=== PATIENT | female | born 1985 | race Asian ===

== ENCOUNTER 2018-10-28 00:37 | Inpatient (IN) | payer OTHER ==
[2018-10-28] MEDS ORDERED: OXYTOCIN/SODIUM CHLORIDE 500 ML IV SCH ×3 (01:00→02:20)
[2018-10-28] MEDS ORDERED: LACTATED RINGERS 1,000 ML IV SCH ×2 (01:00→03:00)
[2018-10-28] MEDS ORDERED: SODIUM CHLORIDE FLUSH 0.9% 10 ML SYRINGE ONE (01:06)
--- NOTE | 2018-10-28 01:38 | HISTORY & PHYSICAL EXAMINATION ---
Admit History - Visit Reason Visit Reason: Contractions (Onset 2200 this pm.) - : 4 Parity: 2 Premature: 0 Ectopic: 0 : 1 Care: positive: ASIA-Monika (Care started at 10 weeks. regular visits. GDM treated with Diet. US at 20 weeks concordant.) Risk/History: positive: Gestational diabetes (partialy controled with diet.) Complications This : positive: Gestational diabetes. negative: Treated for GBS/UTI, Multiple gestation, <than 3 visits, Maternal drug use, induced HTN, Pre-eclampsia, Chronic HTN, Placental abruption, Placenta previa, Rh sensitization Smoking Status: Never smoker - Mother's Labs Mother's Blood Type: positive: B Mother's RH: positive: Positive GBS: positive: Group B Step Negative Rubella Status: positive: Immune Meds/Allgy - Allergies Allergies/Adverse Reactions: Allergies Allergy/AdvReac Type Severity Reaction Status Date / Time No Known Drug Allergies Allergy Verified 10/28/18 01:27 Physical - Abdominal Exam Contraction Frequency (min/apart): q4 Contraction Intensity: positive: Strong Uterine Resting Tone: positive: Soft - Monitoring Heart Rate Baseline: 145 Strip Review: positive: Category I - Presentation Presentation: positive: Vertex - Vaginal Exam Membranes: positive: Membranes intact Dilation (in cm): 7 Effacement (%): 100 Cervical Position: positive: Anterior - Speculum Exam Speculum Exam Performed: positive: No Plan for Labor - Plan For Labor I expect patient to be DC'd or transferred within 96 hours.: Yes Plan for Labor: follow contractions AROM
[2018-10-28 01:48] LABS: BASOPHILS % (AUTO) 0.2 %; EOSINOPHILS % (AUTO) 0.2 %; HGB - HEMOGLOBIN 13.8 g/dL (12.0-16.0); LYMPHOCYTES # (AUTO) 1.8 10^3/uL (1.5-3.5); LYMPHOCYTES % (AUTO) 18.6 %; MEAN CORPUSCULAR HEMOGLOBIN 30.6 pg (27.0-31.0); MEAN CORPUSCULAR HGB CONC 33.5 g/dL (32.0-36.0); MEAN CORPUSCULAR VOLUME 91.1 fL (81.0-99.0); MEAN PLATELET VOLUME 8.6 fL (7.9-10.8); MONOCYTES # (AUTO) 0.8 10^3/uL (0.0-1.0); MONOCYTES % (AUTO) 7.9 %; NEUTROPHILS % (AUTO) 73.1 %; PLT - PLATELET COUNT 203 10^3/uL (130-450); RED BLOOD COUNT 4.51 10^6/uL (4.20-5.40); RED CELL DISTRIBUTION WIDTH 13.5 % (12.0-15.0); WHITE BLOOD COUNT 9.6 x10^3/uL (4.8-10.8)
[2018-10-28] MEDS ORDERED: ONDANSETRON 4 MG/2 ML VIAL IVP PRN (02:38)
[2018-10-28] MEDS ORDERED: oxyCODONE 5 MG TABLET PO PRN (02:38)
[2018-10-28] MEDS ORDERED: HYDROCORTISONE/PRAMOXINE 10 GM PR PRN (02:38)
[2018-10-28] MEDS ORDERED: WITCH HAZEL/GLYCERIN 1 EACH MED..PAD TOP PRN (02:38)
[2018-10-28] MEDS ORDERED: METHYLERGONOVINE 0.2 MG/ML AMP IM PRN (02:38)
[2018-10-28] MEDS ORDERED: diphenhydrAMINE 25 MG CAPSULE PO PRN (02:38)
--- NOTE | 2018-10-28 02:45 | DELIVERY NOTE ---
Delivery Note - Labor Labor: positive: Spontaneous (onset at 2200 presented to L&D at 0040 was 7/100%/-2 intact.) - Delivery Method Delivery Method: positive: Spontaneous vaginal delivery (delivery was) - Presentation Presentation: positive: Vertex, ABAD - right occiput anterior - Nuchal Cord Nuchal Cord: positive: None - Anesthetic Anesthetic Type: - Amniotic Fluid Description Amniotic Fluid Description: positive: Clear (AROM 0148) - Episiotomy Type Episiotomy Type: positive: None - Laceration Laceration: positive: None - Delivery Outcome Delivery Outcome: positive: Livebirth (Live female at 0218 Apgars 8/9, weight 9lb 3.4oz.) - Orange Orange: positive: Placed in direct skin contact with mother, Bulb syringe, Stimulated, Warmed sex: positive: Female - Cord Cord: positive: 3 vessels - Placenta Placenta: positive: Intact (followed at 0222 inspected and noted to be intact. cord inserttion was essentric) - Estimated Blood Loss Estimated Blood Loss (in cc): 350 - Post Delivery Events Post Delivery Events: positive: No post delivery events
[2018-10-28] MEDS: ACETAMINOPHEN 500 MG TABLET PO SCH ×3 (03:07→19:56)
[2018-10-28] MEDS: IBUPROFEN 800 MG TABLET PO SCH ×4 (03:07→21:42)
[2018-10-28] MEDS ORDERED: SIMETHICONE CHEW 80 MG TABLET PO SCH (06:00)
[2018-10-28] MEDS: HYDROCORTISONE 1% CREAM 28 GM TUBE PR PRN (06:00)
[2018-10-28] MEDS: DOCUSATE SODIUM 100 MG CAPSULE PO SCH ×2 (09:06→19:56)
--- NOTE | 2018-10-28 10:52 | PROVIDER PROGRESS NOTE ---
Subjective - Prog Note Date Prog Note Date: 10/28/18 Prog Note Time: 10:50 - Subjective Pt reports feeling: Improved (Pain is 4/10. when questioned pt notes good pain control.) Objective - Vital Signs/Intake & Output Reviewed Vital Signs: Yes Vital Signs: Vital Signs x48h Temp Pulse Resp BP Pulse Ox 10/28/18 08:30 37.2 C 83 16 123/65 97 10/28/18 07:55 36.7 C 78 18 130/78 97 Intake & Output: Intake & Output 10/25/18 10/26/18 10/27/18 10/28/18 23:59 23:59 23:59 23:59 Intake Total 750 Output Total 300 Balance 450 - Objective General Appearance: positive: No acute distress, Alert Respiratory: positive: Chest non-tender, No respiratory distress, Breath sounds nml Cardiovascular: positive: Regular rate & rhythm, No murmur, No gallop Abdomen: positive: Non-tender, Mass (@U) Extremities: negative: Calf tenderness, Carmen's sign/cords Neurologic/Psychiatric: positive: Oriented x3 - Lab Results Fish Bones: 10/28/18 01:30 Other Labs: Lab Results x24hrs 10/28/18 Range/Units 01:30 WBC 9.6 (4.8-10.8) x10^3/uL RBC 4.51 (4.20-5.40) 10^6/uL Hgb 13.8 (12.0-16.0) g/dL Hct 41.2 (37.0-47.0) % MCV 91.1 (81.0-99.0) fL MCH 30.6 (27.0-31.0) pg MCHC 33.5 (32.0-36.0) g/dL RDW 13.5 (12.0-15.0) % Plt Count 203 (130-450) 10^3/uL MPV 8.6 (7.9-10.8) fL Neut # (Auto) 7.0 H (1.5-6.6) 10^3/uL Lymph # (Auto) 1.8 (1.5-3.5) 10^3/uL [place] # (Auto) 0.8 (0.0-1.0) 10^3/uL Eos # (Auto) 0.0 (0.0-0.7) 10^3/uL Baso # (Auto) 0.0 (0.0-0.1) 10^3/uL Absolute Nucleated RBC 0.01 x10^3/uL Nucleated RBC % 0.1 /100WBC Assessment/Plan - Problem List (1) (spontaneous vaginal delivery) Impression: Recovering well (2) GDM, class A1 Impression: Unsure of Pt control
[2018-10-28 11:29] LABS: HB2 TOTAL 14.6 g/dL; HEMOGLOBIN A1C 0.59 g/dL; HEMOGLOBIN A1C % 5.8 % (4.6-6.2)
[2018-10-28 11:29] LABS: BASOPHILS % (AUTO) 0.3 %; HGB - HEMOGLOBIN 13.4 g/dL (12.0-16.0); LYMPHOCYTES # (AUTO) 1.2 10^3/uL (1.5-3.5); LYMPHOCYTES % (AUTO) 10.6 %; MEAN CORPUSCULAR HEMOGLOBIN 30.9 pg (27.0-31.0); MEAN CORPUSCULAR HGB CONC 34.2 g/dL (32.0-36.0); MEAN CORPUSCULAR VOLUME 90.4 fL (81.0-99.0); MEAN PLATELET VOLUME 8.2 fL (7.9-10.8); MONOCYTES # (AUTO) 0.9 10^3/uL (0.0-1.0); MONOCYTES % (AUTO) 8.3 %; NEUTROPHILS # (AUTO) 9.2 10^3/uL (1.5-6.6); NEUTROPHILS % (AUTO) 80.8 %; PLT - PLATELET COUNT 192 10^3/uL (130-450); RED BLOOD COUNT 4.33 10^6/uL (4.20-5.40); RED CELL DISTRIBUTION WIDTH 13.6 % (12.0-15.0); WHITE BLOOD COUNT 11.4 x10^3/uL (4.8-10.8)
[2018-10-29] MEDS: ACETAMINOPHEN 500 MG TABLET PO SCH (03:19)
[2018-10-29] MEDS: IBUPROFEN 800 MG TABLET PO SCH ×2 (03:20→09:18)
[2018-10-29] MEDS: HYDROCORTISONE 1% CREAM 28 GM TUBE PR PRN (06:12)
[2018-10-29 08:34] VITALS: BP 104/61
--- NOTE | 2018-10-29 08:40 | PROVIDER PROGRESS NOTE ---
Subjective - Prog Note Date Prog Note Date: 10/29/18 Prog Note Time: 08:36 - Subjective Pt reports feeling: Improved (breast feeding. Pain is 2/10. cramps with breast feeding.) Objective - Vital Signs/Intake & Output Reviewed Vital Signs: Yes Vital Signs: Vital Signs x48h Temp Pulse Resp BP BP Pulse Ox 10/29/18 08:00 36.7 C 72 16 104/61 98 10/29/18 06:05 36.7 C 71 16 119/74 97 10/29/18 01:15 36.8 C 71 16 111/66 98 Intake & Output: Intake & Output 10/26/18 10/27/18 10/28/18 10/29/18 23:59 23:59 23:59 23:59 Intake Total 1110 600 Output Total 300 Balance 810 600 - Objective General Appearance: positive: No acute distress, Alert Abdomen: positive: Non-tender, No organomegaly, Mass (u-3) Skin: positive: Color nml, No rash, Warm, Dry Extremities: negative: Calf tenderness, Carmen's sign/cords - Lab Results Fish Bones: 10/28/18 11:21 Other Labs: Lab Results x24hrs 10/28/18 10/28/18 Range/Units 11:21 01:30 WBC 11.4 H (4.8-10.8) x10^3/uL RBC 4.33 (4.20-5.40) 10^6/uL Hgb 13.4 (12.0-16.0) g/dL Hct 39.1 (37.0-47.0) % MCV 90.4 (81.0-99.0) fL MCH 30.9 (27.0-31.0) pg MCHC 34.2 (32.0-36.0) g/dL RDW 13.6 (12.0-15.0) % Plt Count 192 (130-450) 10^3/uL MPV 8.2 (7.9-10.8) fL Neut # (Auto) 9.2 H (1.5-6.6) 10^3/uL Lymph # (Auto) 1.2 L (1.5-3.5) 10^3/uL [place] # (Auto) 0.9 (0.0-1.0) 10^3/uL Eos # (Auto) 0.0 (0.0-0.7) 10^3/uL Baso # (Auto) 0.0 (0.0-0.1) 10^3/uL Absolute Nucleated RBC 0.00 x10^3/uL Nucleated RBC % 0.0 /100WBC Glycated Hemoglobin 5.8 (4.6-6.2) % Estim Average Glucose 120 H (70-100) Assessment/Plan - Problem List (1) (spontaneous vaginal delivery) Impression: Pt is doing well good pain control. Discharge to home. Followup at [facility] 2 and 6 weels. Discharge medication Mortin 800 mg Colace 100 mg reviewed breast feeding and s/s of infection. Discussed contraception. (2) GDM, class A1 Impression: Hgb A1C 5.8
[2018-10-29] MEDS: DOCUSATE SODIUM 100 MG CAPSULE PO SCH (09:18)
--- NOTE | 2018-10-29 11:09 | Labor Flowsheet ---
Labor Flowsheet Datetime Report Generated by CPN: 10/29/2018 11:08 Datetime: 10/29/2018 07:59 VITAL SIGNS NBP Sys/Sahara/Mean (mmHg): 104 : 61 : 71 Pulse: 74 Datetime: 10/28/2018 20:44 SpO2 (%): 100 Datetime: 10/28/2018 09:17 Membranes Ruptured Date/Time: 10/28/2018 01:47 Membranes Rupture Method: Artificial Amniotic Fluid Color: Clear Amniotic Fluid Amount: Moderate Amniotic Fluid Odor: Normal Datetime: 10/28/2018 03:15 Respirations: 18 Datetime: 10/28/2018 02:27 Stage of : Recovery Temperature (C): 37.4 Temperature Route: Oral Datetime: 10/28/2018 02:10 ASSESSMENT A Monitor Mode: External US FHR Baseline Rate : 135 FHR Baseline Changes: No Baseline Change Variability: Moderate 6-25 bpm Accelerations: 15X15 Decelerations: Variable Category: Category II Datetime: 10/28/2018 02:06 VAGINAL EXAM Dilatation (cm): 10.0 Effacement (%): 100 Station: 0 Exam by: Dr. Giem STAGE 2 Pushing: Coached on Pushing; Urge to Push Datetime: 10/28/2018 02:00 PATIENT CARE Patient Position/Activity: Standing Datetime: 10/28/2018 01:55 UTERINE ACTIVITY Monitor Mode: External Frequency (min): 2-3 Quality: Moderate Duration (sec): 90 Pattern: Normal: <= 5 Contractions in 10 Minutes Resting Tone (Palpate): Relaxed Datetime: 10/28/2018 01:39 COMMUNICATION LaborFlag: Labor Datetime: 10/28/2018 01:25 Actions for Decelerations: IV Bolus
--- NOTE | 2018-10-29 14:03 | DISCHARGE SUMMARY ---
Physician: Chris Madsen MD DATE OF ADMISSION: 10/28/2018 DATE OF DISCHARGE: 10/29/2018 ADMITTING DIAGNOSES 1. Patient is a 33-year-old G4, P2 female, 39 weeks estimated gestational age. 2. Gestational diabetes. DISCHARGE DIAGNOSES 1. Patient is a 33-year-old G4, P2 female, 39 weeks estimated gestational age. 2. Gestational diabetes. PROCEDURE: Spontaneous vaginal delivery. CHIEF COMPLAINT: Active labor. PRESENTING HISTORY: The patient received her care at [facility]. She started 10 weeks EGA. She had an ul trasound at 20 weeks, which was concordant. She was noted to have gestational diabetes. She was alyssa ated with diet for control. On admission, her cervix was felt to be 7 cm, 0 station. LABORATORIES ON ADMISSION: White count was 6.6, hemoglobin was 13.8, hematocrit was 41.2, platelets were 203. Next morning, her white count was 11.4, hemoglobin was 13.4, hematocrit 39, platelets were 192. Hemoglobin A1c was 5.8. HOSPITAL COURSE: The patient was admitted and is delivered quite soon after admission. She had a 12 -minute second stage period of time delivery. She delivered a live female with Apgars of 8 an d 9, weighing 9 pounds 3 ounces. She had no lacerations. The placenta followed soon. Her postpartu m course has been unremarkable. Her diet has been advanced. She is currently taking a regular diet. She is being discharged to home. DISCHARGE MEDICATIONS 1. Motrin 800 mg, #30. 2. Colace 100 mg, #30. PLAN: Her instructions are to follow up at [facility] in 2 and 6 weeks. She has also discussed the issues of , the signs and symptoms of infection and the need for contraception. TD: 10/29/2018 08:53
== END 2018-10-29 11:00 | disposition home or self-care (01) | DRG 807 ==
LOC: WFO 00:37 → EDBD 00:37 → FBP 00:43 → WFO 00:54 → FBP 00:55
PROVIDERS: ADMIT Obstetrics & Gynecology; ATTEND Obstetrics & Gynecology
PROC: 10E0XZZ Delivery of Products of Conception, External Approach (ICD-10-PCS; principal; 2018-10-28)
PROC: 10907ZC Drainage of Amniotic Fluid, Therapeutic from Products of Conception, Via Natural or Artificial Opening (ICD-10-PCS; 2018-10-28)
DX: O24.420 Gestational diabetes mellitus in childbirth, diet controlled (principal); Z37.0 Single live birth; Z3A.39 39 weeks gestation of pregnancy
CPT/HCPCS: 36415; 83036; 85025

== ENCOUNTER 2020-07-18 10:26 | Outpatient (CLI) | payer OTHER ==
[2020-07-18 11:55] VITALS: BP 124/78
--- NOTE | 2020-07-18 23:02 | PROCEDURE REPORT ---
- HPI Diagnosis/Indication for NST: Gestational Diabetes Current EDU 09/01/20 Gestation 33 Weeks and 4 Days 5 Para 3 Vital Signs Temperature 36.3 C L 07/18/20 11:03 Heart Rate 86 07/18/20 11:03 Respiratory Rate 16 07/18/20 11:03 Blood Pressure 124/78 07/18/20 11:03 O2 Saturation 99 07/18/20 11:03 Temperature 36.3 C L 07/18/20 11:03 Heart Rate 86 07/18/20 11:03 Respiratory Rate 16 07/18/20 11:03 Blood Pressure 124/78 07/18/20 11:03 O2 Saturation 99 07/18/20 11:03 - NST Procedure NST Procedure Start Date 07/18/20 Start Time 10:36 Stop Time 11:04 Vibroacoustic Stimulation Used No Patient States Movement Yes - Results and Plan Findings/Impression: NST performed: 07/18/2020 NST Read 07/18/2020 NST Interpretation Reassuring Baseline 140s, moderate variability, accels, no decels Final Diagnosis 35yo and 33.4wks gestation Gestational Diabetes Plan Continue with scheduled visits and NST monitoring
== END 2020-07-18 11:20 | disposition home or self-care (01) ==
LOC: WFO 10:26
PROVIDERS: ATTEND Advanced Practice Midwife
DX: O24.410 Gestational diabetes mellitus in pregnancy, diet controlled (principal); Z3A.33 33 weeks gestation of pregnancy
CPT/HCPCS: 59025; 76815

== ENCOUNTER 2020-07-18 11:14 | Outpatient (CLI) | payer OTHER ==
--- NOTE | 2020-07-18 13:52 | Ultrasound Report ---
PROCEDURE: OB Limited INDICATIONS: gdm, CLA a1. OUTSIDE/PRIOR DATING DATA: Last menstrual period (LMP): Not available. LMP-based estimated date of delivery (CARA): Not available. First dating scan (date and location): 02/14/2020. Estimated date of delivery (CARA) from first dating scan: Reportedly 09/01/2020. See note below regard ing absence of comparison images and therefore this reported estimated date of delivery is considered provisional.. TECHNIQUE: Real-time scanning was performed of the fetus, with image documentation. Endovaginal scanning: Not needed COMPARISON: None available for image review.. FINDINGS: A single living intrauterine gestation is present. Presentation: Vertex Placenta: Placental position is anterior, without previa. Amniotic fluid index: 10.5 cm, normal for gestational age. heart rate: 142 beats per minutes. Maternal cervical canal: 4.3 cm long; normal length is 2.5 cm or more. Estimated gestational age from initial scan: 33 weeks 4 days assuming the unavailable imaging from [facility] is correct. Given the absence of comparison first OB ultrasound imaging this patien t is considered provisional.. IMPRESSION: Limited OB ultrasound for amniotic fluid index, positioning, placental positioning and viability. No abnormalities found. Please note that the original reported outside OB ultra sound studies for this are not available for review and therefore the provided outside dati ng information is considered provisional. Please provide a release of records, to include imaging jesus a, for optimal into the local PACS system for accurate review. Reviewed by: J Carlos Castro MD on 07/18/2020 1:51 PM PDT Approved by: J Carlos Castro MD on 07/18/2020 1:51 PM PDT Station ID: [id number]
== END 2020-07-18 11:15 | disposition home or self-care (01) ==
LOC: DI 11:14
PROVIDERS: ATTEND Nurse Practitioner Obstetrics & Gynecology
DX: O24.410 Gestational diabetes mellitus in pregnancy, diet controlled (principal); Z34.93 Encounter for supervision of normal pregnancy, unspecified, third trimester
CPT/HCPCS: 76815

== ENCOUNTER 2020-07-22 15:55 | Outpatient (CLI) | payer OTHER ==
[2020-07-22 16:13] VITALS: BP 118/71
--- NOTE | 2020-07-22 19:07 | PROCEDURE REPORT ---
- HPI Diagnosis/Indication for NST: Gestational Diabetes Current EDU 09/01/20 Gestation 34 Weeks and 1 Days 5 Para 3 Vital Signs Temperature 37.1 C 07/22/20 16:10 Heart Rate 87 07/22/20 16:10 Respiratory Rate 16 07/22/20 16:10 Blood Pressure 118/71 07/22/20 16:10 O2 Saturation 98 07/22/20 16:10 Temperature 37.1 C 07/22/20 16:10 Heart Rate 87 07/22/20 16:10 Respiratory Rate 16 07/22/20 16:10 Blood Pressure 118/71 07/22/20 16:10 O2 Saturation 98 07/22/20 16:10 - NST Procedure NST Procedure Start Date 07/22/20 Start Time 16:08 Stop Time 16:28 Vibroacoustic Stimulation Used No Patient States Movement Yes - Results and Plan Plan: S: Ami is a 35yo @ 34.1wks gestation presents today for scheduled NST secondary to suboptimal control of her A1GDM. She reports + FM. She denies vaginal bleeding, Lof, or contractions. She denies questions or concerns today. O: NST reactive. FHR baseline 145, moderate variability, + accels, no decels No contractions appreciated via tocometry. A: 35yo @ 34.1wks gestation [id number] control FHR Category I P: Pt discharged home with routine precautions. F/u in office per routine scheduled appts. Impression: NST reactive Baseline 145, moderate variability, +accels, no decels Diagnosis: A1 Gestational Diabetes
== END 2020-07-22 16:35 | disposition home or self-care (01) ==
LOC: WFO 15:55 → FBP 15:58 → WFO 16:35
PROVIDERS: ATTEND Nurse Practitioner Obstetrics & Gynecology
DX: O24.419 Gestational diabetes mellitus in pregnancy, unspecified control (principal); Z3A.34 34 weeks gestation of pregnancy
CPT/HCPCS: 59025

== ENCOUNTER 2020-07-25 09:38 | Outpatient (CLI) | payer OTHER ==
[2020-07-25 09:52] VITALS: BP 127/78
--- NOTE | 2020-07-25 12:46 | PROCEDURE REPORT ---
- HPI Diagnosis/Indication for NST: Gestational Diabetes Current EDU 09/01/20 Gestation 34 Weeks and 4 Days 5 Para 3 Vital Signs Temperature 37.2 C 07/25/20 09:49 Heart Rate 84 07/25/20 09:49 Respiratory Rate 18 07/25/20 09:49 Blood Pressure 127/78 07/25/20 09:49 O2 Saturation 97 07/25/20 09:49 Temperature 37.2 C 07/25/20 09:49 Heart Rate 84 07/25/20 09:49 Respiratory Rate 18 07/25/20 09:49 Blood Pressure 127/78 07/25/20 09:49 O2 Saturation 97 07/25/20 09:49 - NST Procedure NST Procedure Start Date 07/25/20 Start Time 09:49 Stop Time 10:09 Vibroacoustic Stimulation Used No Patient States Movement Yes - Results and Plan Plan: HPI: 35yo @ 34.4wks gestation presents to [facility] for scheduled NST second francois to suboptimally controlled A1GDM. She denies concerns or complaints today. S: Denies VB or LoF. +FM. Denies concerns or complaints. O: FHR baseline 140s, moderate variability, + accels, no decels A: FHR Category I - meets criteria for reactivity A1GDM P: Continue twice weekly NSTs with once weekly BPPs. F/u in office for scheduled visit or sooner PRN. Pt verbalized understanding and agrees to above plan. DIAGNOSIS: Gestational Diabetes, A1
== END 2020-07-25 10:17 | disposition home or self-care (01) ==
LOC: DI 09:38 → FBP 09:40 → DI 10:17
PROVIDERS: ATTEND Nurse Practitioner Obstetrics & Gynecology
DX: O24.419 Gestational diabetes mellitus in pregnancy, unspecified control (principal); Z3A.34 34 weeks gestation of pregnancy
CPT/HCPCS: 59025

== ENCOUNTER 2020-07-25 10:30 | Outpatient (CLI) | payer OTHER ==
--- NOTE | 2020-07-25 14:05 | Ultrasound Report ---
PROCEDURE: OB Limited INDICATIONS: GDM. WEEKLY FRIDA OUTSIDE/PRIOR DATING DATA: Last menstrual period (LMP): Unsure. LMP-based estimated date of delivery (CARA): Not applicable. First dating scan (date and location): Report of an in office study dated 02/14/2020. Estimated date of delivery (CARA) from first dating scan: 09/01/2020. TECHNIQUE: Real-time scanning was performed of the fetus, with image documentation. Endovaginal scanning: Not performed COMPARISON: Scanned medical record report from [facility] in [place] dated 02/14/2020 and ultrasound report dated 04/15/2020 FINDINGS: A single living intrauterine gestation is present. Presentation: Cephalic Placenta: Placental position is anterior, without previa. Amniotic fluid index: 13.9 cm, 48th percentile for gestational age. Deepest pocket is 4.9 cm. heart rate: 148 beats per minutes. Maternal cervical canal: 3.8 cm long; normal length is 2.5 cm or more. Estimated gestational age from initial scan: 34 weeks 4 days. IMPRESSION: 1. Single living intrauterine . 2. Normal amniotic fluid volume. Reviewed by: Isis Pantoja MD on 07/25/2020 2:04 PM PDT Approved by: Isis Pantoja MD on 07/25/2020 2:04 PM PDT Station ID: [id number]
== END 2020-07-25 23:59 | disposition home or self-care (01) ==
LOC: DI 10:30
PROVIDERS: ATTEND Nurse Practitioner Obstetrics & Gynecology
DX: O24.410 Gestational diabetes mellitus in pregnancy, diet controlled (principal)
CPT/HCPCS: 76815

== ENCOUNTER 2020-07-29 11:55 | Outpatient (CLI) | payer OTHER ==
[2020-07-29 12:10] VITALS: BP 107/77
--- NOTE | 2020-07-29 13:13 | PROCEDURE REPORT ---
- HPI Diagnosis/Indication for NST: Gestational Diabetes Current EDU 09/01/20 Gestation 35 Weeks and 1 Days 5 Para 3 Vital Signs Temperature 36.9 C 07/29/20 12:09 Heart Rate 92 07/29/20 12:09 Respiratory Rate 16 07/29/20 12:09 Blood Pressure 107/77 07/29/20 12:09 O2 Saturation 98 07/29/20 12:09 Temperature 36.9 C 07/29/20 12:09 Heart Rate 92 07/29/20 12:09 Respiratory Rate 16 07/29/20 12:09 Blood Pressure 107/77 07/29/20 12:09 O2 Saturation 98 07/29/20 12:09 - NST Procedure NST Procedure Start Date 07/29/20 Start Time 12:03 Stop Time 12:25 Vibroacoustic Stimulation Used No Patient States Movement Yes - Results and Plan Findings/Impression: HPI: 35yo @ 35.1wks gestation presents to [facility] for scheduled NST secondary to suboptimally controlled A1GDM. She denies concerns or complaints today. S: Denies VB or LoF. +FM. Denies concerns or complaints. O: FHR baseline 140s, moderate variability, + accels, no decels A: FHR Category I - meets criteria for reactivity A1GDM P: Continue twice weekly NSTs with once weekly BPPs. F/u in office for scheduled visit or sooner PRN. Pt verbalized understanding and agrees to above plan. DIAGNOSIS: Gestational Diabetes, A1
== END 2020-07-29 12:30 | disposition home or self-care (01) ==
LOC: WFO 11:55 → FBP 11:57 → WFO 12:30
PROVIDERS: ATTEND Advanced Practice Midwife
DX: O24.419 Gestational diabetes mellitus in pregnancy, unspecified control (principal); Z3A.35 35 weeks gestation of pregnancy
CPT/HCPCS: 59025

== ENCOUNTER 2020-08-01 13:39 | Outpatient (CLI) | payer OTHER ==
[2020-08-01 14:47] VITALS: BP 108/71
--- NOTE | 2020-08-01 15:53 | Ultrasound Report ---
PROCEDURE: OB F/U or Repeat INDICATIONS: GESTATIONAL DIABETES, GROWTH AND FRIDA OUTSIDE/PRIOR DATING DATA: Last menstrual period (LMP): Not available. LMP-based estimated date of delivery (CARA): Not available. First dating scan (date and location): 02/14/2020. Estimated date of delivery (CARA) from first dating scan: 09/01/2020. TECHNIQUE: Real-time scanning was performed of the fetus, with image documentation and biometric measurements. Endovaginal scanning: Not performed COMPARISON: 07/18/2020, 07/25/2020, 04/15/2020, FINDINGS: General: A single living intrauterine gestation is present. Presentation: Cephalic Placenta: Placental position is anterior, without previa. Amniotic fluid index: 13.5 cm, normal for gestational age. heart rate: 141 beats per minute. Maternal cervical canal: 3.5 cm long; normal length is 2.5 cm or more. biometrics: Biparietal diameter: 8.9 cm, 36 weeks 3 days Head circumference: 32.7 cm, 37 weeks 1 day Abdominal circumference: 35.3 cm, 39 weeks 1 day Femur length: 6.8 cm, 34 weeks 5 days Estimated gestational age from initial scan: 35 weeks 4 days. Composite gestational age from present scan: 36 weeks 2 days Estimated weight and percentile: 3266 g, 94th percentile. Measurement variability in biometric dating: +/- 10 days from 12-20 weeks gestation, +/- 2 weeks from 20-30 weeks gestation, +/- 3 weeks at 30 weeks gestation or more. Other: No anomaly suspected.. IMPRESSION: Appropriate interval growth, no anomaly suspected. The delivery date is projected to be centered on 09/01/2020. Reviewed by: J Carlos Castro MD on 08/01/2020 3:52 PM PDT Approved by: J Carlos Castro MD on 08/01/2020 3:52 PM PDT Station ID: [id number]
--- NOTE | 2020-08-01 18:54 | PROCEDURE REPORT ---
- HPI Diagnosis/Indication for NST: Gestational Diabetes Current EDU 09/01/20 Gestation 35 Weeks and 4 Days 5 Para 3 Vital Signs Temperature 98.6 F 08/01/20 14:33 Heart Rate 73 08/01/20 14:33 Respiratory Rate 18 08/01/20 14:33 Blood Pressure 108/71 08/01/20 14:33 Temperature 98.6 F 08/01/20 14:33 Heart Rate 73 08/01/20 14:33 Respiratory Rate 18 08/01/20 14:33 Blood Pressure 108/71 08/01/20 14:33 O2 Saturation - NST Procedure NST Procedure Start Date 08/01/20 Start Time 14:25 Stop Time 14:50 Vibroacoustic Stimulation Used No Patient States Movement Yes EFM 130 mod alvarez 15x15 accels no decels TOCO: Rare - Results and Plan Findings/Impression: 35 yo at 35+4 wga with GDM here for NST Cat I tracing Cont twice weekly NST and weekly FRIDA
== END 2020-08-01 14:55 | disposition home or self-care (01) ==
LOC: DI 13:39 → FBP 14:19 → DI 14:55
PROVIDERS: ATTEND Nurse Practitioner Obstetrics & Gynecology
DX: O24.410 Gestational diabetes mellitus in pregnancy, diet controlled (principal); Z3A.35 35 weeks gestation of pregnancy
CPT/HCPCS: 59025; 76816

== ENCOUNTER 2020-08-05 07:00 | Outpatient (CLI) | payer OTHER | END 2020-08-05 23:59 | disposition home or self-care (01) | LOC: LAB.R 07:00 | PROVIDERS: ATTEND Obstetrics & Gynecology | DX: Z36.85 Encounter for antenatal screening for Streptococcus B (principal) | CPT/HCPCS: 87797 ==

== ENCOUNTER 2020-08-05 16:17 | Outpatient (CLI) | payer OTHER ==
[2020-08-05 16:36] VITALS: BP 118/76
--- NOTE | 2020-09-01 16:07 | PROCEDURE REPORT ---
- HPI Diagnosis/Indication for NST: Gestational Diabetes Current EDU 08/30/20 Gestation 38 Weeks and 6 Days 4 Para 3 Vital Signs Temperature 36.8 C 08/22/20 13:52 Heart Rate 78 08/22/20 13:52 Respiratory Rate 18 08/22/20 13:52 Blood Pressure 132/74 H 08/22/20 13:52 O2 Saturation 99 08/22/20 13:52 Temperature 36.8 C 08/22/20 13:52 Heart Rate 78 08/22/20 13:52 Respiratory Rate 18 08/22/20 13:52 Blood Pressure 132/74 H 08/22/20 13:52 O2 Saturation 99 08/22/20 13:52 - NST Procedure NST Procedure Start Date 08/22/20 Start Time 13:46 Stop Time 14:25 Vibroacoustic Stimulation Used No Patient States Movement Yes - Results and Plan Findings/Impression: reactive NST Plan: continue antinatal testing
== END 2020-08-05 16:56 | disposition home or self-care (01) ==
LOC: WFO 16:17 → FBP 16:20 → WFO 16:56
PROVIDERS: ATTEND Obstetrics & Gynecology
DX: Z36.85 Encounter for antenatal screening for Streptococcus B (principal)
CPT/HCPCS: 59025; 87797

== ENCOUNTER 2020-08-08 13:02 | Outpatient (CLI) | payer OTHER ==
[2020-08-08 13:23] VITALS: BP 111/66
--- NOTE | 2020-08-08 14:24 | PROCEDURE REPORT ---
- HPI Diagnosis/Indication for NST: Gestational Diabetes Current EDU 09/01/20 Gestation 36 Weeks and 4 Days 5 Para 3 Vital Signs Temperature 97.6 F L 08/08/20 13:22 Heart Rate 83 08/08/20 13:22 Respiratory Rate 16 08/08/20 13:22 Blood Pressure 111/66 08/08/20 13:22 O2 Saturation 98 08/08/20 13:22 Temperature 97.6 F L 08/08/20 13:22 Heart Rate 83 08/08/20 13:22 Respiratory Rate 16 08/08/20 13:22 Blood Pressure 111/66 08/08/20 13:22 O2 Saturation 98 08/08/20 13:22 - NST Procedure NST Procedure Start Date 08/08/20 Start Time 13:20 Stop Time 13:40 Vibroacoustic Stimulation Used No Patient States Movement Yes - Results and Plan Findings/Impression: Category 1 NST [place] neg Plan ongoing surveillance
--- NOTE | 2020-08-08 14:30 | Ultrasound Report ---
PROCEDURE: OB Limited INDICATIONS: GESTATIONAL DIABETES OUTSIDE/PRIOR DATING DATA: Last menstrual period (LMP): Unknown. LMP-based estimated date of delivery (CARA): Unknown. First dating scan (date and location): 02/14/2020. Estimated date of delivery (CARA) from first dating scan: 09/01/2020. TECHNIQUE: Real-time scanning was performed of the fetus, with image documentation. Endovaginal scanning: Not performed COMPARISON: 07/18/2020, 07/25/2020, 08/01/2020. FINDINGS: A single living intrauterine gestation is present. Presentation: Vertex Placenta: Placental position is anterior, without previa. Amniotic fluid index: 14.6 cm, 55th percentile for gestational age. Largest pocket measures 5.8 cm heart rate: 137 beats per minutes. Estimated gestational age from initial scan: 36 weeks 4 days. IMPRESSION: Single living intrauterine fetus in vertex presentation FRIDA measures 14.6 cm, 55th percentile Reviewed by: Ney Armas MD on 08/08/2020 2:28 PM PDT Approved by: Ney Armas MD on 08/08/2020 2:28 PM PDT Station ID: [id number]
== END 2020-08-08 13:42 | disposition home or self-care (01) ==
LOC: DI 13:02 → FBP 13:07 → DI 13:42
PROVIDERS: ATTEND Obstetrics & Gynecology
DX: O24.410 Gestational diabetes mellitus in pregnancy, diet controlled (principal); Z34.93 Encounter for supervision of normal pregnancy, unspecified, third trimester
CPT/HCPCS: 59025; 76815

== ENCOUNTER 2020-08-12 11:04 | Outpatient (CLI) | payer OTHER ==
[2020-08-12 11:16] VITALS: BP 118/55
--- NOTE | 2020-08-12 13:06 | PROCEDURE REPORT ---
- HPI Diagnosis/Indication for NST: Gestational Diabetes Current EDU 09/01/20 Gestation 37 Weeks and 1 Days 5 Para 3 Vital Signs Temperature 37.2 C 08/12/20 11:15 Heart Rate 80 08/12/20 11:15 Respiratory Rate 18 08/12/20 11:15 Blood Pressure 118/55 L 08/12/20 11:15 O2 Saturation 99 08/12/20 11:15 Temperature 37.2 C 08/12/20 11:15 Heart Rate 80 08/12/20 11:15 Respiratory Rate 18 08/12/20 11:15 Blood Pressure 118/55 L 08/12/20 11:15 O2 Saturation 99 08/12/20 11:15 - NST Procedure NST Procedure Start Date 08/12/20 Start Time 11:24 Stop Time 11:34 Vibroacoustic Stimulation Used No Patient States Movement Yes - Results and Plan Plan: S: 35yo presents to [facility] for scheduled NST secondary to gestational d iabetes. O: FHR baseline 145, moderate variability, + accels, no decels No contractions appreciated via tocometry A: 35yo @ 37.1wks gestation A1GDM FHR Category I NST reactive P: Reviewed normal NST with pt. Pt released home with precautions. Pt verbalized understanding and agrees to above plan. Denies further questions or concerns at this time. FINAL DIAGNOSIS: A1 Gestational Diabetes- NST reactive
== END 2020-08-12 11:40 | disposition home or self-care (01) ==
LOC: WFO 11:04 → FBP 11:09 → WFO 11:40
PROVIDERS: ATTEND Obstetrics & Gynecology
DX: O24.419 Gestational diabetes mellitus in pregnancy, unspecified control (principal); Z3A.37 37 weeks gestation of pregnancy
CPT/HCPCS: 59025

== ENCOUNTER 2020-08-15 13:46 | Outpatient (CLI) | payer OTHER ==
[2020-08-15 14:31] VITALS: BP 114/68
--- NOTE | 2020-08-15 17:06 | Ultrasound Report ---
PROCEDURE: OB Limited INDICATIONS: GESTATIONAL DIABETES OUTSIDE/PRIOR DATING DATA: Last menstrual period (LMP): Unknown. LMP-based estimated date of delivery (CARA): Unknown. First dating scan (date and location): 02/14/2020. Estimated date of delivery (CARA) from first dating scan: 08/30/2020. TECHNIQUE: Real-time scanning was performed of the fetus, with image documentation. COMPARISON: OB ultrasound 07/18/2020, 08/01/2020 07/25/2020, 08/08/2020 FINDINGS: A single living intrauterine gestation is present. Presentation: Cephalic Placenta: Placental position is anterior, without previa. Amniotic fluid index: 14.6 cm, 5-50 8th percentile for gestational age. Largest pocket 4.9 cm. heart rate: 145 beats per minutes. Maternal cervical canal: Not well seen. Estimated gestational age from initial scan: 37 weeks 4 days. IMPRESSION: Single live intrauterine with ultrasound gestational age of 37 weeks 4 days. A FI is within normal limits. Reviewed by: Tila Osman MD on 08/15/2020 5:04 PM PDT Approved by: Tila Osman MD on 08/15/2020 5:04 PM PDT Station ID: [id number]
--- NOTE | 2020-08-23 01:23 | PROCEDURE REPORT ---
- HPI Diagnosis/Indication for NST: Gestational Diabetes Current EDU 09/01/20 Gestation 37 Weeks and 4 Days 5 Para 3 Vital Signs Temperature 36.4 C L 08/15/20 14:29 Heart Rate 75 08/15/20 14:29 Respiratory Rate 16 08/15/20 14:29 Blood Pressure 114/68 08/15/20 14:29 O2 Saturation 97 08/15/20 14:29 Temperature 36.4 C L 08/15/20 14:29 Heart Rate 75 08/15/20 14:29 Respiratory Rate 16 08/15/20 14:29 Blood Pressure 114/68 08/15/20 14:29 O2 Saturation 97 08/15/20 14:29 - NST Procedure NST Procedure Start Date 08/15/20 Start Time 14:25 Stop Time 14:45 Vibroacoustic Stimulation Used No Patient States Movement Yes - Results and Plan Plan: S: 35yo presents to [facility] for scheduled NST secondary to gestational diabetes. O: FHR baseline 135, moderate variability, + accels, no decels No contractions appreciated via tocometry A: 35yo @ 37.5wks gestation A1GDM FHR Category I NST reactive P: Reviewed normal NST with pt. Pt released home with precautions. Pt verbalized understanding and agrees to above plan. Denies further questions or concerns at this time. FINAL DIAGNOSIS: A1 Gestational Diabetes- NST reactive
--- NOTE | 2020-08-23 01:28 | PROCEDURE REPORT ---
- HPI Diagnosis/Indication for NST: Gestational Diabetes Current EDU 09/01/20 Gestation 37 Weeks and 4 Days 5 Para 3 Vital Signs Temperature 36.4 C L 08/15/20 14:29 Heart Rate 75 08/15/20 14:29 Respiratory Rate 16 08/15/20 14:29 Blood Pressure 114/68 08/15/20 14:29 O2 Saturation 97 08/15/20 14:29 Temperature 36.4 C L 08/15/20 14:29 Heart Rate 75 08/15/20 14:29 Respiratory Rate 16 08/15/20 14:29 Blood Pressure 114/68 08/15/20 14:29 O2 Saturation 97 08/15/20 14:29 - NST Procedure NST Procedure Start Date 08/15/20 Start Time 14:25 Stop Time 14:45 Vibroacoustic Stimulation Used No Patient States Movement Yes - Results and Plan Plan: S: 35yo presents to [facility] for scheduled NST secondary to gestational diabetes. O: FHR baseline 140, moderate variability, + accels, no decels No contractions appreciated via tocometry A: 35yo @ 38.5wks gestation A1GDM FHR Category I NST reactive P: Reviewed normal NST with pt. Pt released home with precautions. Pt verbalized understanding and agrees to above plan. Denies further questions or concerns at this time. FINAL DIAGNOSIS: A1 Gestational Diabetes- NST reactive
== END 2020-08-15 14:51 | disposition home or self-care (01) ==
LOC: DI 13:46 → FBP 14:18 → DI 14:51
PROVIDERS: ATTEND Nurse Practitioner Obstetrics & Gynecology
DX: O24.419 Gestational diabetes mellitus in pregnancy, unspecified control (principal); Z3A.37 37 weeks gestation of pregnancy
CPT/HCPCS: 59025; 76815

== ENCOUNTER 2020-08-18 11:07 | Outpatient (CLI) | payer OTHER ==
[2020-08-18 11:29] VITALS: BP 117/86
--- NOTE | 2020-08-18 16:08 | PROCEDURE REPORT ---
- HPI Diagnosis/Indication for NST: Gestational Diabetes Current EDU 08/30/20 Gestation 38 Weeks and 2 Days 4 Para 3 Vital Signs Temperature 37.5 C 08/18/20 11:23 Heart Rate 82 08/18/20 11:23 Respiratory Rate 18 08/18/20 11:23 Blood Pressure 117/86 H 08/18/20 11:23 Temperature 37.1 C 08/18/20 11:40 Heart Rate 83 08/18/20 11:40 Respiratory Rate 18 08/18/20 11:40 Blood Pressure 117/86 H 08/18/20 11:40 O2 Saturation - NST Procedure NST Procedure Start Date 08/18/20 Start Time 11:20 Stop Time 11:52 Vibroacoustic Stimulation Used No Patient States Movement Yes - Results and Plan Plan: S: 35yo presents to [facility] for scheduled NST secondary to gestational diabetes. O: FHR baseline 145, moderate variability, + accels, no decels No contractions appreciated via tocometry A: 35yo @ 38.0wks gestation A1GDM FHR Category I NST reactive P: Reviewed normal NST with pt. Pt released home with precautions. Pt verbalized understanding and agrees to above plan. Denies further questions or concerns at this time. FINAL DIAGNOSIS: A1 Gestational Diabetes- NST reactive
== END 2020-08-18 12:05 | disposition home or self-care (01) ==
LOC: WFO 11:07 → FBP 11:08 → WFO 12:05
PROVIDERS: ATTEND Surgery
DX: O24.419 Gestational diabetes mellitus in pregnancy, unspecified control (principal); Z3A.38 38 weeks gestation of pregnancy
CPT/HCPCS: 59025

== ENCOUNTER 2020-08-22 12:56 | Outpatient (CLI) | payer OTHER ==
[2020-08-22 13:53] VITALS: BP 132/74
--- NOTE | 2020-08-22 17:12 | Ultrasound Report ---
PROCEDURE: OB Limited INDICATIONS: GESTATIONAL DIABETES OUTSIDE/PRIOR DATING DATA: Last menstrual period (LMP): Not available. LMP-based estimated date of delivery (CARA): Not available. First dating scan (date and location): 02/14/2020. Estimated date of delivery (CARA) from first dating scan: 09/01/2020. TECHNIQUE: Real-time scanning was performed of the fetus, with image documentation. Endovaginal scanning: Not needed. COMPARISON: All prior available OB ultrasound studies from this .. FINDINGS: A single living intrauterine gestation is present. Presentation: Vertex. Placenta: Placental position is anterior, without previa. Amniotic fluid index: 9.1 cm, at the lower 13.4 percentile for gestational age. heart rate: 150 beats per minutes. Maternal cervical canal: Not well seen due to positioning . Estimated gestational age from initial scan: 38 weeks 4 days extremity movement and respiratory activity within the amniotic fluid was observed. The c hest and diaphragm, stomach and abdomen, right and left foraminal regions and the urinary bladder deysi ear normal.. IMPRESSION: Reduction in the overall amniotic fluid volume, to the lower 13.4 percentile. Previously amniotic fluid volume have been at the 58th percentile 08/15/2020. Reviewed by: J Carlos Castro MD on 08/22/2020 5:11 PM PDT Approved by: J Carlos Castro MD on 08/22/2020 5:11 PM PDT Station ID: [id number]
== END 2020-08-22 14:30 | disposition home or self-care (01) ==
LOC: DI 12:56 → FBP 13:49 → DI 14:30
PROVIDERS: ATTEND Obstetrics & Gynecology
DX: O24.410 Gestational diabetes mellitus in pregnancy, diet controlled (principal); Z3A.38 38 weeks gestation of pregnancy
CPT/HCPCS: 59025; 76815

== ENCOUNTER 2020-08-24 19:44 | Inpatient (IN) | payer OTHER ==
[2020-08-24] MEDS ORDERED: OXYTOCIN/SODIUM CHLORIDE 500 ML IV PRN (20:04)
[2020-08-24] MEDS ORDERED: SODIUM CHLORIDE FLUSH 0.9% 10 ML SYRINGE IVP PRN (20:04)
[2020-08-24] MEDS ORDERED: TRANEXAMIC ACID 1,000 MG in SODIUM CHLORIDE 0.9% 100ML 100 ML IV PRN (20:04)
[2020-08-24] MEDS ORDERED: CARBOPROST TROMETHAMINE 250 MCG/ML AMP IM PRN (20:04)
[2020-08-24] MEDS ORDERED: OXYTOCIN 10 UNIT/ML VIAL IM PRN (20:04)
[2020-08-24] MEDS ORDERED: METHYLERGONOVINE 0.2 MG/ML VIAL IM PRN (20:04)
[2020-08-24] MEDS ORDERED: LIDOCAINE-MPF 1% 30 ML VIAL ID PRN (20:04)
[2020-08-24] MEDS ORDERED: miSOPROStoL 200 MCG TABLET BC PRN (20:04)
[2020-08-24 20:43] LABS: BASOPHILS % (AUTO) 0.3 %; EOSINOPHILS % (AUTO) 0.1 %; HGB - HEMOGLOBIN 12.9 g/dL (12.0-16.0); LYMPHOCYTES # (AUTO) 1.5 10^3/uL (1.5-3.5); LYMPHOCYTES % (AUTO) 20.4 %; MEAN CORPUSCULAR HEMOGLOBIN 30.6 pg (27.0-31.0); MEAN CORPUSCULAR HGB CONC 34.1 g/dL (32.0-36.0); MEAN CORPUSCULAR VOLUME 89.8 fL (81.0-99.0); MEAN PLATELET VOLUME 9.8 fL (7.9-10.8); MONOCYTES # (AUTO) 0.6 10^3/uL (0.0-1.0); MONOCYTES % (AUTO) 8.2 %; NEUTROPHILS # (AUTO) 5.3 10^3/uL (1.5-6.6); NEUTROPHILS % (AUTO) 70.5 %; PLT - PLATELET COUNT 243 10^3/uL (130-450); RED BLOOD COUNT 4.21 10^6/uL (4.20-5.40); RED CELL DISTRIBUTION WIDTH 13.2 % (12.0-15.0); WHITE BLOOD COUNT 7.5 x10^3/uL (4.8-10.8)
[2020-08-24] MEDS ORDERED: LACTATED RINGERS 1,000 ML IV SCH (21:00)
[2020-08-24] MEDS ORDERED: ROPIVACAINE 0.2% 200 MG/100 ML BAG EP ONE (21:11)
--- NOTE | 2020-08-24 21:12 | HISTORY & PHYSICAL EXAMINATION ---
Admit History - Visit Reason Visit Reason: Contractions - : 5 Parity: 3 Premature: 0 Ectopic: 0 : 1 Care: positive: [facility] Risk/History: positive: Gestational diabetes Complications This : positive: Gestational diabetes Smoking Status: Never smoker - Mother's Labs Mother's Blood Type: positive: B Mother's RH: positive: Positive GBS: positive: Group B Step Negative Rubella Status: positive: Immune Meds/Allgy - Allergies Allergies/Adverse Reactions: Allergies Allergy/AdvReac Type Severity Reaction Status Date / Time No Known Drug Allergies Allergy Verified 10/28/18 01:27 Review of Systems - Constitutional Constitutional: denies: Fatigue, Fever, Chills - Eyes Eyes: denies: Blurred vision, Spots in vision, Dipolpia - Cardiovascular Cariovascular: denies: Irregular heart rate, Palpitations, Chest pain, Edema - Respiratory Respiratory: denies: Cough, SOB at rest - Gastrointestinal Gastrointestinal: denies: Change in bowel habits - Integumentary Integumentary: denies: Rash, Pruritis - Neurological Neurological: denies: Headache Physical - Abdominal Exam Vital Signs: Temp Pulse Resp BP Pulse Ox 37.2 C 83 16 133/89 H 99 08/24/20 20:07 08/24/20 19:57 08/24/20 19:57 08/24/20 19:57 08/24/20 19:57 Contraction Frequency (min/apart): 4-8 Contraction Intensity: positive: Strong Uterine Resting Tone: positive: Soft - Monitoring Heart Rate Baseline: 150 Strip Review: positive: Category I - Presentation Presentation: positive: Vertex - Vaginal Exam Membranes: positive: Membranes intact Dilation (in cm): 4-5 Effacement (%): 80 Station: positive: -1 Plan for Labor - Plan For Labor I expect patient to be DC'd or transferred within 96 hours.: Yes Plan for Labor: HPI: This 35yo @ 38.6wks gestation by LMP c/w 12.2wk U/S presents to [facility] on 08/24/2020 @ approximately 2000 with complaints of contractions that have become increasingly painful and closer together throughout the day today. She denies vaginal bleeding or leakage of fluid. She reports +FM. She has been a patient of [facility] since her transfer of care at 33wks gestation from [facility] and has received consistent care through the duration of her . Her has been complicated by her diagnosis of gestational diabetes which has remained diet controlled. Upon initial diagnosis she had suboptimal blood glucose control however following diabetic education her blood glucose control has significantly improved. She has a hx of gestational diabetes with her most recent and delivered a 9lb 3oz baby following 39wk induction of labor. monitoring has included twice weekly NSTs and once weekly BPPs since 33wks gestation. Most recent EFW measuring 94th percentile. Pt will be admitted for expectant management. Dating criteria: LMP: 11/26/2019 Initial U/S @ 12.2wks c/w LMP dating Serial exams - agree OB History: G1: 11/22/2010; ; 40wk; unmedicated; Male; 8.3lbs G2: 2014 SAB G3: 10/07/2016; ; 39wks; epidural; Female; 8lbs G4: 10/28/2018; ; 39wks-IOL; unmedicated; Female; 9.3lbs; A1GDM G5: Current; A1GDM Medications: PNV Allergies: NKDA PMHx: Tuberculosis Surgical Hx: Anterior cervical lymph node dissection (2012) Social Hx: Never smoker, no ETOH or IVDA; Peter- deployed Family Hx: Diabetes - mother; HTN- mother; Stroke/CVA- Father; Thyroid disorder - mother; Heart disease - father Course: Initial U/S:02/14/2020 @ 12.2wks c/w LMP dating. B pos/Rubella immune VZV: immune Genetic testing: Serum integrated screen - neg FAS: 04/15/2020 WNL; Anerior placenta, no previa. 3VC. FRIDA WNL. 07/28/2020 FRIDA WNL (no growth reported); 07/25/2020 FRIDA WNL; 08/01/2020 FRIDA WNL- EFW 95%tile 08/08/2020 FRIDA WNL; 08/15/2020 FRIDA WNL; 08/22/2020 FRIDA 9.1 (13th%tile) Growth US: efw 95% Glucola: Early screen 1 hr elevated, 28wk GTT diagnoses GDM TDAP 06/13/2020 Influenza 08/05/2020 GBS at 36.1- NEG HSV: denies Breast pump Rx: has MOD: pp contraception: BTL consent signs 08/05/2020 pap: last pap 11/2018 WNL; HPV neg - next pap due 11/2023 Physical Exam: Normocephalic, atraumatic Heart RRR w/o M/G/R Lungs CTAB Abdomen gravid, soft, nontender SVE 4-5/80/-1, vertex; Intact membranes FHR baseline 150, moderate variability, + accels, no decels Contractions palpate strong every 4-8 minutes with soft resting tone Bilateral LE's trace edema Mood is good Admission labs: WNL Random blood glucose 91 Assessment: 35yo @ 38.6wks gestation by LMP c/w 12.2wk U/S A1GDM Active labor FHR Category I Plan: Admit for expectant management Epidural per maternal request AROM with next SVE once comfortable with epidural Continuous monitoring All pp hemorrhage medications at the bedside to prepare for potential pp hemorrhage secondary to multigravid and suspected LGA infant Anticipate Reviewed plan of care with pt and mother in law at the bedside who are in agreement with above plan and deny questions or concerns at this time.
[2020-08-24] MEDS ORDERED: ePHEDrine 50 MG/ML VIAL IVP PRN (21:46)
[2020-08-24] MEDS ORDERED: diphenhydrAMINE INJ 50 MG/ML VIAL IVP PRN (21:46)
[2020-08-24] MEDS ORDERED: ROPIVACAINE 0.2% 200 MG/100 ML BAG EP PRN (21:46)
[2020-08-24] MEDS ORDERED: ONDANSETRON 4 MG/2 ML VIAL IVP PRN (21:46)
[2020-08-24] MEDS ORDERED: NALBUPHINE 10 MG/ML AMP IVP PRN (21:46)
[2020-08-24] MEDS ORDERED: METOCLOPRAMIDE 10 MG/2 ML VIAL IVP PRN (21:46)
[2020-08-24] MEDS ORDERED: NALOXONE 0.4 MG/ML VIAL IVP PRN (21:46)
--- NOTE | 2020-08-24 21:50 | ANESTHESIA ---
Pre-Anesthesia VS, & Labs - Diagnosis term labor, IUP - Procedure epidural for Vital Signs: Temp Pulse Resp BP Pulse Ox 37.2 C 83 16 133/89 H 99 08/24/20 20:07 08/24/20 19:57 08/24/20 19:57 08/24/20 19:57 08/24/20 19:57 Height: 5 ft 3 in Weight (kg): 85.729 kg Body Mass Index: 33.5 BMI Classification: Obese - NPO Last Fluid Intake: t/o day Last Food Intake: full dinner - Is Patient ?: Yes - Lab Results Current Lab Results: Laboratory Tests 08/24/20 21:39: POC Whole Bld Glucose 91 08/24/20 20:29: WBC 7.5, RBC 4.21, Hgb 12.9, Hct 37.8, MCV 89.8, MCH 30.6, MCHC 34.1, RDW 13.2, Plt Count 243, MPV 9.8, Neut # (Auto) 5.3, Lymph # (Auto) 1.5, [place] # (Auto) 0.6, Eos # (Auto) 0.0, Baso # (Auto) 0.0, Absolute Nucleated RBC 0.00, Nucleated RBC % 0.0 08/24/20 20:29: Blood Type B POSITIVE, Antibody Screen NEGATIVE Lab results reviewed: Yes Fish Bones: 08/24/20 20:29 Home Medications and Allergies Active Medications Carboprost Tromethamine (Hemabate) 250 mcg IM Q15M PRN PRN Reason: Step 4: Hemorrhage protocol Stop: 08/29/20 20:05 Lactated Ringer's (Lr) 1,000 mls @ 150 mls/hr IV .Q6H40M NYDIA Last Admin: 08/24/20 20:50 Dose: 150 mls/hr Documented by: Oxytocin/Sodium Chloride (Pitocin/Sodium Chloride) 500 mls @ 999 mls/hr IV PRN PRN; Protocol PRN Reason: POST- HEMORR PREVENTION Stop: 08/29/20 20:05 Tranexamic Acid 1,000 mg/ (Sodium Chloride) 110 mls @ 660 mls/hr IV .ONCE PRN PRN Reason: EBL >1200mL and within 3hr Stop: 08/29/20 20:05 Lidocaine HCl (Xylocaine-Mpf 1% Vial) 30 ml ID .ONCE PRN PRN Reason: PERINEAL REPAIR Stop: 08/29/20 20:05 Methylergonovine Maleate (Methergine Inj) 0.2 mg IM .ONCE PRN PRN Reason: Step 2: Hemorrhage protocol Stop: 08/29/20 20:05 Misoprostol (Cytotec) 800 mcg BC .ONCE PRN PRN Reason: Step 3: Hemorrhage protocol Stop: 08/29/20 20:05 Oxytocin (Pitocin) 10 unit IM .ONCE PRN PRN Reason: Step one: If no IV access Stop: 08/29/20 20:05 Sodium Chloride (Normal Saline Flush 0.9%) 10 ml IVP PRN PRN PRN Reason: NEEDED PER PROVIDER ORDERS Sodium Chloride (Normal Saline Flush 0.9%) 10 ml IVP 0100,0900,1700 NYDIA Allergies/Adverse Reactions: Allergies Allergy/AdvReac Type Severity Reaction Status Date / Time No Known Drug Allergies Allergy Verified 10/28/18 01:27 Anes History & Medical History - Anesthetic History Anesthesia Complications: reports: No previous complications Family history of Anesthesia Complications: Denies Family history of Malignant Hyperthermia: Denies - Medical History Cardiovascular: reports: None Pulmonary: reports: None Gastrointestinal: reports: None Urinary: reports: None Neuro: reports: None Endocrine/Autoimmune: reports: Other (gestational diabetes FBS=91) Blood Disorders: reports: None Skin: reports: None Smoking Status: Never smoker Psychosocial: reports: No issues indicated History of Cancer?: No - Surgical History Dermatologic: Other (neck biopsy) - Obstetrical History : 5 Parity: 3 Events: positive: Gestational diabetes Complications: positive: Gestational diabetes Exam General: Alert, Oriented x3, Cooperative Dental: WNL Mouth Openin Fingerbreadth Neck Mobility: Normal Mallampati classification: II Thyromental Distance: greater than 6 cm Respiratory: No respiratory distress Cardiovascular: Regular rate Neurological: Normal speech Mental/Cognitive Status: Alert/Oriented X3, Normal for patient Cognitive Status: Within normal limits Plan Anesthesia Type: Epidural Consent for Procedure(s) Verified and Reviewed: Yes Code Status: Attempt Resuscitation ASA classification: 2-Mild systemic disease Is this case an emergency?: No
[2020-08-24] MEDS ORDERED: ACETAMINOPHEN 500 MG TABLET PO SCH (23:45)
[2020-08-24] MEDS ORDERED: IBUPROFEN 800 MG TABLET PO SCH (23:45)
[2020-08-24] MEDS ORDERED: WITCH HAZEL/GLYCERIN 1 PAD TOP PRN (23:58)
[2020-08-24] MEDS ORDERED: HYDROCORTISONE 1% CREAM 28 GM TUBE PR PRN (23:58)
--- NOTE | 2020-08-24 23:58 | DELIVERY NOTE ---
Delivery Note - Labor Labor: positive: Spontaneous, Augmented by ARM - Infant Delivery Method Delivery Method: positive: Spontaneous vaginal delivery - Presentation Presentation: positive: Vertex, MARLINE - left occiput anterior - Nuchal Cord Nuchal Cord: positive: None - Amniotic Fluid Description Amniotic Fluid Description: positive: Moderate meconium - Episiotomy Type Episiotomy Type: positive: None - Laceration Laceration: positive: None - Delivery Outcome Delivery Outcome: positive: Livebirth - : positive: Placed in direct skin contact with mother, Bulb syringe, Stimulated, Warmed, [place] used sex: positive: Female - Cord Cord: positive: 3 vessels - Placenta Placenta: positive: Intact, Spontaneous - Estimated Blood Loss Estimated Blood Loss (in cc): 300 - Post Delivery Events Post Delivery Events: positive: No post delivery events - Delivery Comments (Free Text/Narrative) Delivery Comments (Free Text/Narrative): Labor: This 35yo @ 38.6wks gestation by LMP c/w 12.2wk U/S presented on 08/24/2020 @ approximately 2000 in active labor. Cervix was 4-5/80/-1, vertex with intact membranes. FHR pattern demonstrated Category I pattern throughout labor. Epidural placed per maternal request. Normal labor course. AROM occurred at 2147 and was noted to be a moderate amount of moderate meconium stained amniotic fluid. (Professor Of Psychiatry and respiratory therapy notified to be present for delivery). Pt progressed to c/c/0 at 2313. Spontaneous, active pushing initiated at 2323. : Normal of viable female on 08/24/2020 at 2328 in MARLINE position. No nuchal cord. The was stimulated, dried, and placed skin to skin. 's were 9/9 at 1 and 5 min respectively. Pitocin administered via IV for hemostasis. The umbilical cord was allowed to stop pulsating at which time it was doubly clamped by CNM and cut by mother in law. 3VC. Cord blood was obtained. Placenta delivered spontaneously and intact at 2337. EBL 300mL. Fourth stage: Uterine fundus firm and there is no excessive bleeding. The perinuem, vagina, and cervix were inspected and noted to be intact. Family bonding well. Both mother and baby were left in stable condition.
[2020-08-25] MEDS ORDERED: SODIUM CHLORIDE FLUSH 0.9% 10 ML SYRINGE IVP SCH (01:00)
[2020-08-25] MEDS ORDERED: DOCUSATE SODIUM 100 MG CAPSULE PO SCH (09:00)
[2020-08-25] MEDS ORDERED: DOCUSATE SODIUM 100 MG CAPSULE PO ONE (10:44)
[2020-08-25] MEDS ORDERED: IBUPROFEN 800 MG TABLET PO ONE (10:44)
--- NOTE | 2020-08-25 17:30 | PROVIDER PROGRESS NOTE ---
Subjective - Prog Note Date Prog Note Date: 08/25/20 Prog Note Time: 07:15 - Subjective Pt reports feeling: Improved Subjective: Final Progress Note S: Ami is sitting up in bed, her baby. She reports as going well, and her pain as well controlled with PO meds. She reports her bleeding as light, and denies any concerns. O: Fundus firm, bleeding light. Perineum intact from . A: 35yo on day 1 Status post term Perineum intact P: Review Continue routine PP care and meds Evaluate for DC home tomorrow Objective - Lab Results Fish Bones: 08/24/20 20:29 Other Labs: Lab Results x24hrs 08/24/20 08/24/20 08/24/20 Range/Units 21:39 20:29 20:29 WBC 7.5 (4.8-10.8) x10^3/uL RBC 4.21 (4.20-5.40) 10^6/uL Hgb 12.9 (12.0-16.0) g/dL Hct 37.8 (37.0-47.0) % MCV 89.8 (81.0-99.0) fL MCH 30.6 (27.0-31.0) pg MCHC 34.1 (32.0-36.0) g/dL RDW 13.2 (12.0-15.0) % Plt Count 243 (130-450) 10^3/uL MPV 9.8 (7.9-10.8) fL Neut # (Auto) 5.3 (1.5-6.6) 10^3/uL Lymph # (Auto) 1.5 (1.5-3.5) 10^3/uL [place] # (Auto) 0.6 (0.0-1.0) 10^3/uL Eos # (Auto) 0.0 (0.0-0.7) 10^3/uL Baso # (Auto) 0.0 (0.0-0.1) 10^3/uL Absolute Nucleated RBC 0.00 x10^3/uL Nucleated RBC % 0.0 /100WBC POC Whole Bld Glucose 91 (70 - 100) mg/dL Blood Type B POSITIVE Antibody Screen NEGATIVE
[2020-08-26 08:33] VITALS: BP 116/71
--- NOTE | 2020-08-26 09:15 | DISCHARGE SUMMARY ---
Discharge Summary Discharge Date: 08/26/20 Condition at Discharge: Good Discharge Disposition: 01 Home, Self Care - HPI History of Present Illness: Admit Date 08/24/2020 Discharge Date 08/26/2020 Diagnosis on Admission: 1. 35yo @ 38.6wks gestation 2. Early Active Labor 3. Gestational Diabetes: A1GDM Diagnosis on Discharge 1. 35yo s/p spontaneous vaginal delivery on 08/24/2020 2. Normal recovery Brief History: She is a patient at [facility] who presented on 08/24/2020 with complaints of contractions. The patient was found to be patrica spontaneously and Cervix was 4-5/80/-1, vertex with intact membranes. Shespontaneously delivered a viable female named Jean. Apgars were 9 and 9- and 1 and 5 minutes respectively. EBL 300 mL. The patient's perineum was found to be intact. She has been doing well in her course. She is ambulating and tolerating a regular diet. She is urinating without difficulty and her lochia is normal. Her pain is well controlled with oral medications. She will be discharged home today on day #2 without need for prescriptions.. She intends to follow up with Midwifery at [facility] in 1, and 6 weeks for routine visit. She has been given precautions to call if she has any worsening fevers, chills, abdominal pain, increased bleeding or foul smelling vaginal lochia. - ALLERGIES Allergies/Adverse Reactions: Allergies Allergy/AdvReac Type Severity Reaction Status Date / Time No Known Drug Allergies Allergy Verified 10/28/18 01:27 - LABS Result Diagrams: 08/24/20 20:29
--- NOTE | 2020-08-26 09:15 | Discharge Plan ---
Discharge Plan Problem Reviewed?: Yes Disposition: Home, Self Care Condition: Good Diet: Regular Activity Restrictions: No Restrictions Shower Restrictions: No Driving Restrictions: No Additional Instructions or Follow Up instructions: Follow up with midwifery at 1 and 6 weeks No Smoking: If you smoke, Please STOP! Call for help. Follow-up with: Darcy Bautista ARNP [Provider Admit Priv/Credential] -
--- NOTE | 2020-08-26 11:28 | Labor Flowsheet ---
Labor Flowsheet Datetime Report Generated by CPN: 08/26/2020 11:28 Datetime: 08/26/2020 07:58 VITAL SIGNS NBP Sys/[place]ara/Mean (mmHg): 116 : 71 : 82 Pulse: 61 Datetime: 08/25/2020 01:50 SpO2 (%): 98 Datetime: 08/25/2020 01:38 Temperature (C): 37.3 Temperature Route: Oral Datetime: 08/24/2020 23:50 Stage of : Datetime: 08/24/2020 23:46 LaborFlag: Labor Datetime: 08/24/2020 23:28 UTERINE ACTIVITY Monitor Mode: External Frequency (min): 1.5-3 Quality: Strong Duration (sec): 60-100 Resting Tone (Palpate): Relaxed ASSESSMENT A Monitor Mode: Telemetry FHR Baseline Rate : 145 Variability: Moderate 6-25 bpm Accelerations: 15X15 Decelerations: None Category: Category I STAGE 2 Pushing: Coached on Pushing Pushing Position: Pushing with Contractions; Pushing Lithotomy Pushing Progress: with Pushing Datetime: 08/24/2020 23:20 Patient Care Comments: 250ml out in dahl Datetime: 08/24/2020 23:19 COMMUNICATION Communication: Provider at Bedside Provider Notified (Name): A. Trinidad, CNM Datetime: 08/24/2020 23:13 VAGINAL EXAM Dilatation (cm): 10.0 Effacement (%): 100 Station: 1 Exam by: Tyler Gomes RN Communication Comments: Coming to bedside to attend delivery Datetime: 08/24/2020 23:09 Pain Presence: None/Denies MATERNAL ASSESSMENT Level of Consciousness: Alert DTR's/Clonus: DTRs 2+; No Clonus Headache: Denies Breath Sounds, Left: Clear and Equal Breath Sounds, Right: Clear and Equal Nausea/Vomiting: Denies RUQ Epigastric Pain: Denies PATIENT CARE IV/Blood Work: IV Infusing per Order Datetime: 08/24/2020 23:03 Pain Coping: Talking Through Contractions Comfort Measures: Breathing/Relaxation Datetime: 08/24/2020 23:00 Pattern: Normal: <= 5 Contractions in 10 Minutes Datetime: 08/24/2020 22:19 Hygiene: Underpad Changed; Peripad Changed Datetime: 08/24/2020 22:00 Pain Type: N/A Datetime: 08/24/2020 21:47 Membrane Status: Ruptured Membranes Rupture Method: Artificial Amniotic Fluid Color: Light Meconium Amniotic Fluid Amount: Moderate Datetime: 08/24/2020 21:30 ANESTHESIA Anesthesia Plans: Epidural Epidural Procedure Other: Pump Started Datetime: 08/24/2020 21:26 Patient Position/Activity: HOB Lowered; Left Tilt Datetime: 08/24/2020 21:20 Epidural Procedure: Cath Placed Datetime: 08/24/2020 21:14 Epidural Positioning: Sitting Datetime: 08/24/2020 21:10 PAIN Pain Scale: 8 Pain Location: Abdomen Pain Relief Measures: Epidural Given PROCEDURE TIME OUT Procedure Verify: Correct Patient Identity; Correct Side and Site are Marked; Accurate Procedure Co nsent Form; Agreement on Procedure to be Done; Correct Patient Position; Safety Precautions Based on Patient History or Medication Use Datetime: 08/24/2020 20:48 Consults: Anesthesia
== END 2020-08-26 11:15 | disposition home or self-care (01) | DRG 807 ==
LOC: WFO 19:44 → FBP 19:47 → WFO 20:03 → FBP 20:04
PROVIDERS: ADMIT Nurse Practitioner Obstetrics & Gynecology; ATTEND Advanced Practice Midwife
PROC: 10E0XZZ Delivery of Products of Conception, External Approach (ICD-10-PCS; principal; 2020-08-24)
PROC: 10907ZC Drainage of Amniotic Fluid, Therapeutic from Products of Conception, Via Natural or Artificial Opening (ICD-10-PCS; 2020-08-24)
DX: O24.420 Gestational diabetes mellitus in childbirth, diet controlled (principal); Z37.0 Single live birth; O77.0 Labor and delivery complicated by meconium in amniotic fluid; Z3A.38 38 weeks gestation of pregnancy; Z83.3 Family history of diabetes mellitus
CPT/HCPCS: 85025; 86850; 86900; 86901; 99213; A9270; J7120

== ENCOUNTER 2020-08-28 14:35 | Outpatient (CLI) | payer OTHER ==
--- NOTE | 2020-08-28 16:44 | Labor Flowsheet ---
Labor Flowsheet Datetime Report Generated by CPN: 08/28/2020 16:44 Datetime: 08/26/2020 07:58 VITAL SIGNS NBP Sys/[place]/Mean (mmHg): 116 : 71 : 82 Pulse: 61 Datetime: 08/25/2020 01:50 SpO2 (%): 98 Datetime: 08/25/2020 01:38 Temperature (C): 37.3 Temperature Route: Oral Datetime: 08/24/2020 23:50 Stage of : Datetime: 08/24/2020 23:46 LaborFlag: Labor Datetime: 08/24/2020 23:28 UTERINE ACTIVITY Monitor Mode: External Frequency (min): 1.5-3 Quality: Strong Duration (sec): 60-100 Resting Tone (Palpate): Relaxed ASSESSMENT A Monitor Mode: Telemetry FHR Baseline Rate : 145 Variability: Moderate 6-25 bpm Accelerations: 15X15 Decelerations: None Category: Category I STAGE 2 Pushing: Coached on Pushing Pushing Position: Pushing with Contractions; Pushing Lithotomy Pushing Progress: with Pushing Datetime: 08/24/2020 23:20 Patient Care Comments: 250ml out in dahl Datetime: 08/24/2020 23:19 COMMUNICATION Communication: Provider at Bedside Provider Notified (Name): A. Trinidad, CNM Datetime: 08/24/2020 23:13 VAGINAL EXAM Dilatation (cm): 10.0 Effacement (%): 100 Station: 1 Exam by: Tyler Gomes RN Communication Comments: Coming to bedside to attend delivery Datetime: 08/24/2020 23:09 Pain Presence: None/Denies MATERNAL ASSESSMENT Level of Consciousness: Alert DTR's/Clonus: DTRs 2+; No Clonus Headache: Denies Breath Sounds, Left: Clear and Equal Breath Sounds, Right: Clear and Equal Nausea/Vomiting: Denies RUQ Epigastric Pain: Denies PATIENT CARE IV/Blood Work: IV Infusing per Order Datetime: 08/24/2020 23:03 Pain Coping: Talking Through Contractions Comfort Measures: Breathing/Relaxation Datetime: 08/24/2020 23:00 Pattern: Normal: <= 5 Contractions in 10 Minutes Datetime: 08/24/2020 22:19 Hygiene: Underpad Changed; Peripad Changed Datetime: 08/24/2020 22:00 Pain Type: N/A Datetime: 08/24/2020 21:47 Membrane Status: Ruptured Membranes Rupture Method: Artificial Amniotic Fluid Color: Light Meconium Amniotic Fluid Amount: Moderate Datetime: 08/24/2020 21:30 ANESTHESIA Anesthesia Plans: Epidural Epidural Procedure Other: Pump Started Datetime: 08/24/2020 21:26 Patient Position/Activity: HOB Lowered; Left Tilt Datetime: 08/24/2020 21:20 Epidural Procedure: Cath Placed Datetime: 08/24/2020 21:14 Epidural Positioning: Sitting Datetime: 08/24/2020 21:10 PAIN Pain Scale: 8 Pain Location: Abdomen Pain Relief Measures: Epidural Given PROCEDURE TIME OUT Procedure Verify: Correct Patient Identity; Correct Side and Site are Marked; Accurate Procedure Co nsent Form; Agreement on Procedure to be Done; Correct Patient Position; Safety Precautions Based on Patient History or Medication Use Datetime: 08/24/2020 20:48 Consults: Anesthesia
== END 2020-08-28 15:50 | disposition home or self-care (01) ==
LOC: WFO 14:35 → FBP 14:43 → WFO 15:50
PROVIDERS: ATTEND Nurse Practitioner Obstetrics & Gynecology
DX: O92.70 Unspecified disorders of lactation (principal)
CPT/HCPCS: 99401

== ENCOUNTER 2020-09-04 08:00 | Outpatient (CLI) | payer OTHER ==
[2020-09-04 19:03] LABS: BASOPHILS # (AUTO) 0.1 10^3/uL (0.0-0.1); BASOPHILS % (AUTO) 0.8 %; EOSINOPHILS # (AUTO) 0.1 10^3/uL (0.0-0.7); EOSINOPHILS % (AUTO) 1.2 %; HGB - HEMOGLOBIN 15.5 g/dL (12.0-16.0); LYMPHOCYTES # (AUTO) 2.3 10^3/uL (1.5-3.5); LYMPHOCYTES % (AUTO) 30.6 %; MEAN CORPUSCULAR HEMOGLOBIN 29.4 pg (27.0-31.0); MEAN CORPUSCULAR HGB CONC 32.4 g/dL (32.0-36.0); MEAN CORPUSCULAR VOLUME 90.9 fL (81.0-99.0); MEAN PLATELET VOLUME 9.9 fL (7.9-10.8); MONOCYTES # (AUTO) 0.5 10^3/uL (0.0-1.0); MONOCYTES % (AUTO) 7.3 %; NEUTROPHILS # (AUTO) 4.4 10^3/uL (1.5-6.6); NEUTROPHILS % (AUTO) 59.7 %; PLT - PLATELET COUNT 290 10^3/uL (130-450); RED BLOOD COUNT 5.27 10^6/uL (4.20-5.40); WHITE BLOOD COUNT 7.4 x10^3/uL (4.8-10.8)
[2020-09-04 19:31] LABS: ALBUMIN 4.1 g/dL (3.2-5.5); BILIRUBIN,TOTAL 0.7 mg/dL (0.2-1.0); CALCIUM 9.8 mg/dL (8.5-10.3); CREATININE 0.7 mg/dL (0.4-1.0); TOTAL PROTEIN 8.4 g/dL (6.7-8.2)
[2020-09-04 19:39] LABS: CREATININE,URINE 29.8 mg/dL; PROTEIN/CREATININE RATIO,URINE 0.2 (<=0.2)
== END 2020-09-04 08:01 | disposition home or self-care (01) ==
LOC: LAB.WCP 08:00
PROVIDERS: ATTEND Nurse Practitioner Obstetrics & Gynecology
DX: I10 Essential (primary) hypertension (principal)
CPT/HCPCS: 36415; 80053; 82570; 84156; 85025

== ENCOUNTER 2020-09-09 13:42 | Outpatient (CLI) | payer OTHER ==
[2020-09-09 14:12] LABS: BASOPHILS % (AUTO) 0.6 %; EOSINOPHILS # (AUTO) 0.1 10^3/uL (0.0-0.7); EOSINOPHILS % (AUTO) 1.3 %; HGB - HEMOGLOBIN 15.6 g/dL (12.0-16.0); LYMPHOCYTES # (AUTO) 1.8 10^3/uL (1.5-3.5); LYMPHOCYTES % (AUTO) 26.4 %; MEAN CORPUSCULAR HEMOGLOBIN 30.6 pg (27.0-31.0); MEAN CORPUSCULAR HGB CONC 33.4 g/dL (32.0-36.0); MEAN CORPUSCULAR VOLUME 91.6 fL (81.0-99.0); MEAN PLATELET VOLUME 9.5 fL (7.9-10.8); MONOCYTES # (AUTO) 0.5 10^3/uL (0.0-1.0); MONOCYTES % (AUTO) 6.9 %; NEUTROPHILS # (AUTO) 4.4 10^3/uL (1.5-6.6); NEUTROPHILS % (AUTO) 64.5 %; PLT - PLATELET COUNT 271 10^3/uL (130-450); RED CELL DISTRIBUTION WIDTH 12.7 % (12.0-15.0); WHITE BLOOD COUNT 6.8 x10^3/uL (4.8-10.8)
[2020-09-09 14:33] LABS: ALBUMIN/GLOBULIN RATIO 1.1 (1.0-2.2); BILIRUBIN,TOTAL 0.8 mg/dL (0.2-1.0); CALCIUM 9.2 mg/dL (8.5-10.3); CREATININE 0.8 mg/dL (0.4-1.0); TOTAL PROTEIN 7.8 g/dL (6.7-8.2)
[2020-09-09 14:54] LABS: CREATININE,URINE 222.7 mg/dL; PROTEIN/CREATININE RATIO,URINE 0.1 (<=0.2)
== END 2020-09-09 13:43 | disposition home or self-care (01) ==
LOC: LAB 13:42
PROVIDERS: ATTEND Nurse Practitioner Obstetrics & Gynecology
DX: I10 Essential (primary) hypertension (principal)
CPT/HCPCS: 36415; 80053; 82570; 84156; 85025